=== PATIENT | female | born 1960 | race Caucasian/White ===

== ENCOUNTER 2016-10-22 15:17 | Observation (INO) ==
--- NOTE | 2016-10-22 15:38 | Emergency Department Note ---
Disposition Clinical Impression: Cellulitis Qualifiers: Site of cellulitis of extremity: upper extremity Laterality: right Disposition: Admitted As Inpatient Condition: Good Skin/Abscess/FB HPI Chief complaint: ED Skin/Abscess/Foreign Body Stated complaint: cellulitis right upper extremity Time Seen by Provider: 10/22/16 15:35 Source: patient, other (PCP report) Mode of arrival: private vehicle Limitations: no limitations Nursing Notes Reviewed: Yes Vital Signs Reviewed: Yes HPI Narrative: Patient presents to the ED with right upper extremity pain, swelling and redness. States she had some minor discomfort in her arm yesterday and woke up today with more throbbing pain in her arm. Over the course of the morning she has developed diffuse redness and warmth throughout the right arm. She has chronic lymphedema in this arm for the past 3 years due to a right mastectomy and lymph node resection 6 years ago. in this arm but states it is more swollen than usual. States she tried to put on her compression sleeve when she had the discomfort this morning but became too uncomfortable. She was seen at her PCPs office who was concerned for cellulitis. PCPs office reports a temperature of 101 at their facility. They sent her here for further evaluation. Patient is right-handed. She denies any recent trauma or injury to the arm. She took 600 mg of ibuprofen at 10:30 this morning with some relief. Home Medications Medication Instructions Recorded Confirmed Anastrozole [Arimidex] 1 mg PO DAILY 10/22/16 10/22/16 Calcium Carb/Vitamin D3/Vit K1 1 each PO DAILY 10/22/16 10/22/16 [Calcium + D Soft Chewable Tab] Cholecalciferol (Vitamin D3) 2,000 unit PO DAILY 10/22/16 10/22/16 [Vitamin D] Fluticasone Propionate Nasal 50 mcg NS DAILY 10/22/16 10/22/16 [Flonase] Furosemide [Lasix] 40 mg PO DAILY 10/22/16 10/22/16 Krill/[place]-3/Dha/Epa/Lipids 1 each PO DAILY 10/22/16 10/22/16 [Krill Oil 300 mg Softgel] Loratadine [Claritin] 10 mg PO DAILY 10/22/16 10/22/16 Montelukast [Singulair] 10 mg PO DAILY 03/16/17 03/16/17 Omeprazole 20 mg PO DAILY 10/22/16 10/22/16 Potassium Chloride [Klor-Con 10 meq PO DAILY 10/22/16 10/22/16 Sprinkle] Valsartan [Diovan] 80 mg PO DAILY 10/22/16 10/22/16 Allergies Allergy/AdvReac Type Severity Reaction Status Date / Time ampicillin Allergy Rash Verified 09/08/15 12:42 naproxen [From Naprosyn] Allergy Rash Verified 10/22/16 15:19 tape Allergy Blister Uncoded 09/08/15 12:42 Constitutional: Reports: fever, chills. Denies: weakness, weight change Eyes: Denies: eye pain, eye discharge, vision change ENT ED: Denies: ear pain, throat pain, dental pain, hearing loss, epistaxis, congestion, dysphagia Respiratory: Denies: cough, dyspnea, wheezes, hemoptysis, stridor Gastrointestinal: Denies: abdominal pain, nausea, vomiting, diarrhea, constipation, hematemesis, melena, hematochezia Genitourinary: Denies: dysuria, frequency, hematuria, discharge Musculoskeletal: Reports: as per HPI Integumentary: Reports: as per HPI. Denies: rash, abrasion, lesions Neurological: Denies: headache, weakness, numbness, paresthesias, confusion, abnormal gait, vertigo Psychiatric: Denies: anxiety, depression, suicidal thoughts, homicidal thoughts , auditory hallucinations, visual hallucinations Endocrine: Denies: fatigue Hematological/Lymphatic: Denies: easy bleeding, easy bruising Allergic/Immunologic: Denies: facial swelling, urticaria Past Medical History - Past Medical History Medical history: Reports: arthritis, cancer, GERD, hypertension, other Psychiatric history: Reports: no psych history ORE GRADER history: Reports: no ORE GRADER history - Social History Smoking Status: Never smoker Smokeless Tobacco Status: No Alcohol use: Reports: none Drug use: Reports: none Physical Exam - General Limitations: no limitations General appearance: alert, in no apparent distress - Head Head exam: atraumatic, normocephalic, normal inspection - Eye Eye exam: Present: normal appearance, PERRL, EOMI - ENT ENT exam: normal exam, normal oropharynx, mucous membranes moist - Neck Neck exam: Present: normal inspection, full ROM, trachea midline - Chest Chest inspection: Present: normal inspection, symmetric chest wall rise - Respiratory Respiratory exam: Present: normal lung sounds bilaterally - Cardiovascular Cardiovascular exam: Present: regular rate, normal rhythm, normal heart sounds - Abdominal Exam Abdominal exam: Present: soft, Non-Tender. Absent: tenderness, distention, guarding, rebound, rigidity - Extremities Exam Extremities exam: Present: normal capillary refill - Expanded Upper Extremity Exam Shoulder exam: Present: swelling, erythema Arm exam: Present: swelling, erythema Elbow exam: Present: swelling, erythema Forearm/Wrist exam: Present: swelling, erythema Hand exam: Present: swelling, erythema Neuromotor exam: Normal: wrist extension, thumb opposition, thumb adduction, fingers 2-5 abduction Neurosensory exam: Normal: radial nerve Vascular exam: Normal: capillary refill, radial pulse Course Course Narrative: Presents to the ED with 1 day a significant redness, swelling and warmth to the right upper extremity with exam findings consistent with cellulitis. There is no open sores or other injuries to the arm. Lab work was obtained which showed a leukocytosis with left shift. She was started on IV antibiotics. Given the significant degree of her cellulitis she will require admission for IV antibiotics. Patient is agreeable to this. I spoke to the hospitalist rehab/pre vocational counselor , Dr. Graves who agreed to accept the patient. Vital Signs Temperature 99.2 F 10/22/16 15:22 Pulse Rate 115 10/22/16 15:22 Respiratory Rate 18 10/22/16 15:22 Blood Pressure 143/89 10/22/16 15:22 O2 Sat by Pulse Oximetry 98 10/22/16 15:22 Temperature 99.2 F 10/22/16 15:24 Pulse Rate 109 10/22/16 16:26 Respiratory Rate 17 10/22/16 16:26 Blood Pressure 116/72 10/22/16 16:26 O2 Sat by Pulse Oximetry 99 10/22/16 16:26 Oxygen Delivery Oxygen Delivery Room Air Skin/Abscess/Foreign Body - Differential Diagnosis Likely: cellulitis - Medical Records Medical records reviewed: Yes I reviewed the patient's medical records. - Lab Data Lab results reviewed: Yes I reviewed the patient's lab results. Result diagrams: 10/22/16 16:07 10/22/16 16:07 Lab Results 10/22/16 10/22/16 Range/Units 16:07 16:07 WBC 17.2 H (4.3-11.1) K/mcL RBC 4.59 (3.82-4.97) M/mcL Hgb 14.6 (11.5-15.4) g/dL Hct 40.9 (35.3-44.9) % MCV 89.1 (83.0-100.0) fL MCH 31.8 (28.0-33.3) pg MCHC 35.7 H (31.6-35.5) g/dL RDW 12.5 (11.5-14.5) % Plt Count 222 (140-400) K/mcL MPV 10.7 (9.4-12.4) fL Immature Gran % 0.8 (0-4) % Seg Neutrophils % 88.2 % Lymphocytes % 6.3 % Monocytes % 4.4 % Eosinophils % 0.1 % Basophils % 0.2 % Neutrophils # 15.2 H (1.6-8.9) K/mcL Lymphocytes # 1.1 (0.6-4.6) K/mcL Monocytes # 0.8 (0.0-1.3) K/mcL Eosinophils # 0.0 (0.0-0.6) K/mcL Basophils # 0.0 (0.0-0.2) K/mcL Sodium 140 (136-145) mEq/L Potassium 4.4 (3.5-4.5) mEq/L Chloride 103 (98-109) mEq/L Carbon Dioxide 23 (19-29) mEq/L BUN 12 (7-20) mg/dL Creatinine 0.80 (0.57-1.11) mg/dL Est GFR ( Amer) > 60 (> 60) Est GFR (Non-Af Amer) > 60 (> 60) BUN/Creatinine Ratio 15 (6-26) Glucose 102 H (70-99) mg/dL Calculated Osmolality 290 (280-300) Calcium 9.5 (8.6-10.8) mg/dL
[2016-10-22] MEDS ORDERED: Clindamycin 600 MG/50 ML 600 MG/50 ML IV.SOLN IVPB ONE (15:52)
[2016-10-22 16:19] LABS: Basophils % 0.2 %; Eosinophils % 0.1 %; Hematocrit 40.9 % (35.3-44.9); Hemoglobin 14.6 g/dL (11.5-15.4); Immature Granulocytes % 0.8 % (0-4); Lymphocytes # 1.1 K/mcL (0.6-4.6); Lymphocytes % 6.3 %; Mean Corpuscular HGB Conc 35.7 g/dL (31.6-35.5); Mean Corpuscular Hemoglobin 31.8 pg (28.0-33.3); Mean Corpuscular Volume 89.1 fL (83.0-100.0); Mean Platelet Volume 10.7 fL (9.4-12.4); Monocytes # 0.8 K/mcL (0.0-1.3); Monocytes % 4.4 %; Platelet Count 222 K/mcL (140-400); Red Blood Count 4.59 M/mcL (3.82-4.97); Red Cell Distribution Width 12.5 % (11.5-14.5); Segmented Neutrophils % 88.2 %
[2016-10-22 16:20] LABS: Neutrophils # 15.2 K/mcL (1.6-8.9)
[2016-10-22 16:34] LABS: BUN/Creatinine Ratio 15 (6-26); Blood Urea Nitrogen 12 mg/dL (7-20); Calcium 9.5 mg/dL (8.6-10.8); Carbon Dioxide 23 mEq/L (19-29); Chloride 103 mEq/L (98-109); Glucose 102 mg/dL (70-99); Osmolality,Calculated 290 (280-300); Potassium 4.4 mEq/L (3.5-4.5); Sodium 140 mEq/L (136-145); eGFR For African Americans > 60 (> 60); eGFR For Non-African Americans > 60 (> 60)
[2016-10-22] MEDS ORDERED: *HR* HYDROcodone/Acet 5/325 mg TABLET PO PRN ×2 (17:21→18:50)
[2016-10-22] MEDS ORDERED: Naloxone 0.4 MG/ML INJ IVP PRN ×2 (17:21→18:50)
[2016-10-23] MEDS: Clindamycin 600 MG/50 ML 600 MG/50 ML IV.SOLN IVPB SCH ×3 (02:47→16:28)
[2016-10-23] MEDS: Cholecalciferol (D-3) 1,000 UNIT TABLET PO SCH (09:41)
[2016-10-23] MEDS: Loratadine 10 MG TABLET PO SCH (09:41)
[2016-10-23] MEDS: Furosemide 40 MG TABLET PO SCH (09:42)
[2016-10-23] MEDS: Valsartan 80 MG TABLET PO SCH (09:42)
[2016-10-23] MEDS: Fluticasone Propionate Nasal 50 MCG/SPRAY BOTTLE NS SCH (09:48)
[2016-10-23] MEDS: EPA PO SCH (10:06)
[2016-10-23] MEDS: DHA PO SCH (10:06)
[2016-10-23] MEDS: Anastrozole 1 MG TABLET PO SCH (10:06)
[2016-10-23] MEDS: LIPIDS PO SCH (10:06)
[2016-10-23] MEDS: KRILL PO SCH (10:06)
[2016-10-23] MEDS: OMEGA PO SCH (10:06)
--- NOTE | 2016-10-23 11:09 | Internal Med History&Physical ---
Date of Encounter: 10/23/16 Time of Encounter: 10:40 Assessment and Plan (1) Cellulitis Current visit: Yes Status: Acute She has been started on IV clindamycin. Lactobacillus will be added. Further workup will be done as needed. Qualifiers: Site of cellulitis of extremity: upper extremity Laterality: right Qualified Code(s): L03.113 - Cellulitis of right upper limb (2) Hypertension Current visit: Yes Status: Chronic Continue valsartan. Qualifiers: Hypertension type: essential hypertension Qualified Code(s): I10 - Essential (primary) hypertension Internal Medicine - H&P: HPI Chief complaint: Right arm infection Admitted From: Home Plans for Post Hospital Care: Home History of present illness: Ms. Breen is a 55 year old female who came to emergency room after she had onset of cellulitis in her right arm a few hours earlier. She was evaluated in emergency room and started on IV clindamycin. She was admitted to [facility] floor for ongoing care needs. She states she had a previous episode of right arm cellulitis August 2015. 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 She uses a lymphedema pump regularly. She follows at [facility] [place]. She states she is cancer free at this time. She denies other internal malignancies anemia or blood disorders. Past Med Surg Social Fam HX - Past Medical History Medical history: arthritis, cancer, GERD, hypertension, other Psychiatric history: no psych history - Social History Smoking Status: Never smoker Smokeless Tobacco Status: No Alcohol use: none Drug use: none - Family History Mother Living Status: Age at : 97 Hx Family Cardiac Disorders: Yes (hypertension) Hx Family Cancer: Yes (brain, pancreatic, lung, female ?) Internal Medicine - H&P: Meds Anastrozole [Arimidex] 1 mg PO DAILY 10/22/16 [History] Calcium Carb/Vitamin D3/Vit K1 [Calcium + D Soft Chewable Tab] 1 each PO DAILY 10/22/16 [History] Cholecalciferol (Vitamin D3) [Vitamin D] 2,000 unit PO DAILY 10/22/16 [History] Fluticasone Propionate Nasal [Flonase] 50 mcg NS DAILY 10/22/16 [History] Furosemide [Lasix] 40 mg PO DAILY 10/22/16 [History] Krill/[place]-3/Dha/Epa/Lipids [Krill Oil 300 mg Softgel] 1 each PO DAILY [History] Loratadine [Claritin] 10 mg PO DAILY 10/22/16 [History] Montelukast [Singulair] 10 mg PO DAILY 10/22/16 [History] Omeprazole 20 mg PO DAILY 10/22/16 [History] Potassium Chloride [Klor-Con Sprinkle] 10 meq PO DAILY 10/22/16 [History] Valsartan [Diovan] 80 mg PO DAILY 10/22/16 [History] Allergies ampicillin Allergy (Verified 09/08/15 12:42) Rash naproxen [From Naprosyn] Allergy (Verified 10/22/16 15:19) Rash tape Allergy (Uncoded 09/08/15 12:42) Blister All Systems PM: A 10-system review of systems was performed and is negative for pertinent findings except as documented above in the HPI. Review of systems: Gen.: She states her weight has been stable the past few months Cardiovascular: She has a history of hypertension but denies AL heart failure angina DVT or pulmonary embolus. She does have peripheral edema. She claims an exercise stress test a few years ago was negative Respiratory: She smoked from age [age] but has no known chronic lung disease and does not wear home oxygen GI: She has GERD but denies disorders of her liver gallbladder or exocrine pancreas : She denies hematuria dysuria or kidney stones Neurologic: She denies large distribution strokes or seizures. 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 She denies other bone joint or muscle disorders. - Constitutional Vitals: Temp Pulse Resp BP Pulse Ox 99.7 F H 100 18 108/68 96 10/23/16 08:21 10/23/16 08:21 10/23/16 08:21 10/23/16 08:21 10/23/16 08:21 Exam: Gen.: She is a well-developed overweight female who appears in no severe distress at present time HEENT head is atraumatic and normocephalic. Eyes: EOMI. There is no scleral icterus. Mouth: Mucosa is moist. Neck: Supple and nontender. There is no thyromegaly or adenopathy noted. Heart: Regular without murmurs gallops or ectopics Lungs: No wheezes or crackles are heard. Abdomen: Soft and nontender. No masses or guarding are noted. Extremities: There is no cyanosis edema or clubbing noted. Dorsalis pedis and posttibial pulses are trace palpable bilaterally. She has significant erythema involving most of her right arm. The right arm is larger than the left due to the lymphedema. Her left arm shows no evidence of infection. Neurologic: Mental status: She is talkative and a good historian. Cranial nerves: Smile is symmetric. Forehead wrinkles bilaterally. Tongue protrudes midline. EOMI. Motor: There is no pronator drift. Cerebellar: Finger to nose is intact bilaterally. Skin: Warm and dry Internal Med - H&P Results - Labs CBC & Chem 7: 10/22/16 16:07 10/22/16 16:07 - VTE Reasons for not Prescribing Prophylaxis: Treatment not Indicated - Low risk for VTE
[2016-10-24] MEDS: Clindamycin 600 MG/50 ML 600 MG/50 ML IV.SOLN IVPB SCH ×3 (00:48→15:01)
[2016-10-24] MEDS: Anastrozole 1 MG TABLET PO SCH (08:11)
[2016-10-24] MEDS: Valsartan 80 MG TABLET PO SCH (08:12)
[2016-10-24] MEDS: Cholecalciferol (D-3) 1,000 UNIT TABLET PO SCH (08:12)
[2016-10-24] MEDS: Furosemide 40 MG TABLET PO SCH (08:12)
[2016-10-24] MEDS: Loratadine 10 MG TABLET PO SCH (08:12)
[2016-10-24] MEDS ORDERED: Lactobacillus 1 EACH CAP.SPRINK PO SCH (09:00)
[2016-10-24] MEDS: Fluticasone Propionate Nasal 50 MCG/SPRAY BOTTLE NS SCH (09:15)
[2016-10-24] MEDS: KRILL PO SCH (09:18)
[2016-10-24] MEDS: OMEGA PO SCH (09:18)
[2016-10-24] MEDS: EPA PO SCH (09:18)
[2016-10-24] MEDS: DHA PO SCH (09:18)
[2016-10-24] MEDS: LIPIDS PO SCH (09:18)
[2016-10-24 09:25] LABS: Basophils % 0.4 %; Eosinophils # 0.2 K/mcL (0.0-0.6); Eosinophils % 1.8 %; Hematocrit 37.3 % (35.3-44.9); Immature Granulocytes % 0.4 % (0-4); Lymphocytes # 1.4 K/mcL (0.6-4.6); Lymphocytes % 13.8 %; Mean Corpuscular HGB Conc 34.9 g/dL (31.6-35.5); Mean Corpuscular Hemoglobin 31.7 pg (28.0-33.3); Mean Platelet Volume 10.3 fL (9.4-12.4); Monocytes # 0.7 K/mcL (0.0-1.3); Monocytes % 6.6 %; Neutrophils # 7.7 K/mcL (1.6-8.9); Platelet Count 192 K/mcL (140-400)
[2016-10-24 10:52] VITALS: BP 109/75
--- NOTE | 2016-10-24 14:40 | Discharge Summary ---
Date of Encounter: 10/24/16 Time of Encounter: 14:30 - Discharge Diagnosis (1) Cellulitis Priority: Primary Status: Acute Qualifiers: Site of cellulitis of extremity: upper extremity Laterality: right Qualified Code(s): L03.113 - Cellulitis of right upper limb (2) Hypertension Priority: Secondary Status: Chronic Qualifiers: Hypertension type: essential hypertension Qualified Code(s): I10 - Essential (primary) hypertension - Discharge Medications Prescriptions: Clindamycin [Cleocin] 300 mg PO Q8H #30 capsule Lactobacillus [Culturelle] 1 each PO BID #10 cap.sprink Home Medications: Anastrozole [Arimidex] 1 mg PO DAILY 10/22/16 [History] Calcium Carb/Vitamin D3/Vit K1 [Calcium + D Soft Chewable Tab] 1 each PO DAILY 10/22/16 [History] Cholecalciferol (Vitamin D3) [Vitamin D3] 2,000 unit PO DAILY 10/22/16 [History] Fluticasone Propionate Nasal [Flonase] 50 mcg NS DAILY 10/22/16 [History] Furosemide [Lasix] 40 mg PO DAILY 10/22/16 [History] Krill/[place]-3/Dha/Epa/Lipids [Krill Oil 300 mg Softgel] 1 each PO DAILY [History] Montelukast [Singulair] 10 mg PO DAILY 10/22/16 [History] Omeprazole 20 mg PO DAILY 10/22/16 [History] Potassium Chloride [Klor-Con Sprinkle] 10 meq PO DAILY 10/22/16 [History] Valsartan [Diovan] 80 mg PO DAILY 10/22/16 [History] Clindamycin [Cleocin] 300 mg PO Q8H #30 capsule 10/24/16 [Rx] Lactobacillus [Culturelle] 1 each PO BID #10 cap.sprink 10/24/16 [Rx] Loratadine [Claritin] 10 mg PO DAILY PRN #0 10/24/16 [Rx] Allergies/Adverse Reactions: Allergies ampicillin Allergy (Verified 09/08/15 12:42) Rash naproxen [From Naprosyn] Allergy (Verified 10/22/16 15:19) Rash tape Allergy (Uncoded 09/08/15 12:42) Blister Date of admission: 10/22/16 16:58 Primary care physician: Marlon Bruce MD - Patient Status Disposition: Home, Self-Care Condition: Good Overall status at discharge: patient is progressing back to baseline - Discharge Instructions Follow Up With: Marlon Bruce MD [Primary Care Provider] - - Diet and Activity Activity: resume usual activities as tolerated Diet: advance to your usual diet Hospital course: Ms. Breen is a 55 year old female who came to emergency room after she had onset of cellulitis in her right arm a few hours earlier. She was evaluated in emergency room and started on IV clindamycin. She was [facility] to [facility] for ongoing care needs. Initial orders were written by the emergency room physician. I saw her on October 23 and performed the history and physical. She was started on IV clindamycin. She had significant improvement overnight with WBC normalizing at 10.0 and differential improving with 77% segs on October 24. She remained afebrile. When I saw her on October 24 she felt stable for discharge home which I felt was reasonable. There was significant decrease in the erythema of the right arm. She will continue antibiotics and probiotic for 5 additional days at discharge. She will follow with her PCP Dr. Bruce within 1 week. - Time Spent with Patient Total time spent providing and/or coordinating discharge services: - Constitutional Vitals: Temp Pulse Resp BP Pulse Ox 98.6 F 80 16 109/75 98 10/24/16 10:51 10/24/16 10:51 10/24/16 10:51 10/24/16 10:51 10/24/16 10:51 - VTE Reasons for not Prescribing Prophylaxis: Treatment not Indicated - Low risk for VTE
== END 2016-10-24 16:10 | disposition home or self-care (01) ==
LOC: EMEROOPIK 15:17 → INPPIK 15:17
PROVIDERS: ADMIT Internal Medicine; ATTEND Internal Medicine